=== PATIENT | female | born 1965 | race Caucasian/White ===

== ENCOUNTER 2022-01-19 04:31 | Day surgery (SDC) | payer BC ==
[2022-01-16 17:44] VITALS: BMI 24.4
[2022-01-19] MEDS ORDERED: MIDAZOLAM HCL 2 MG/2 ML SINGLE DOSE VIAL ONE (09:57)
[2022-01-19] MEDS ORDERED: BUPIVACAINE HCL/PF 0.5% (5MG/ML) 10 ML VIAL IJ ONE ×3 (10:33→10:43)
[2022-01-19] MEDS ORDERED: oxyCODONE HCL 5 MG TABLET PO PRN ×2 (12:51→14:26)
[2022-01-19] MEDS ORDERED: LACTATED RINGERS SOLUTION 1,000 ML/1,000 ML INFUS.BAG IV SCH ×2 (13:00→14:45)
[2022-01-19] MEDS ORDERED: ONDANSETRON 4 MG/2 ML VIAL IVPUSH PRN (14:26)
[2022-01-19] MEDS ORDERED: LACTATED RINGERS SOLUTION 1,000 ML IV SCH (14:30)
[2022-01-19 16:39] LABS: HEMATOCRIT 38.7 % (32.4-45.2); HEMOGLOBIN 12.9 GM/dL (10.7-15.3); MCH 29.8 pg (25.7-33.7); MCHC 33.3 g/dl (32.0-36.0); MEAN CELL VOLUME 89.7 fl (80-96); MEAN PLT VOLUME 8.3 fl (7.5-11.1); PLATELET COUNT 267 10^3/uL (134-434); RBC 4.32 M/mm3 (3.60-5.2); RDW 12.8 % (11.6-15.6); WHITE BLOOD COUNT 11.6 K/mm3 (4.0-10.0)
[2022-01-19 17:43] LABS: ANISOCYTOSIS 0; MACROCYTOSIS 0; PLATELET ESTIMATE NORMAL
[2022-01-20 15:27] VITALS: BP 85/44; PULSE 86; TEMP 98.2
== END 2022-01-20 17:21 | disposition home or self-care (01) ==
LOC: JASUSAT 04:31 → JASU-SURG 04:31 → J6S 14:09 → JASUSAT 01-20 17:21
PROVIDERS: ATTEND Surgery
PROC: 0FT44ZZ Resection of Gallbladder, Percutaneous Endoscopic Approach (ICD-10-PCS; principal; 2022-01-19 10:00)
DX: K80.10 Calculus of gallbladder with chronic cholecystitis without obstruction (principal)
CPT/HCPCS: 36415; 85025; 88304-TC; 94760

== ENCOUNTER 2022-07-10 21:47 | Emergency (ER) | payer BC, OTHER ==
[2022-07-10 21:58] VITALS: BP 153/84; PULSE 93; RESP 19; TEMP 98.1; BMI 22.3
[2022-07-10] MEDS ORDERED: IBUPROFEN 600 MG TABLET (FP) PO ONE (22:34)
[2022-07-10] MEDS ORDERED: METHOCARBAMOL 500 MG TABLET PO ONE (22:34)
[2022-07-10] MEDS ORDERED: METHOCARBAMOL 500 MG TABLET ONE (22:34)
== END 2022-07-11 00:52 | disposition home or self-care (01) ==
LOC: JERFT 21:47
DX: S16.1XXA Strain of muscle, fascia and tendon at neck level, initial encounter (principal); S39.012A Strain of muscle, fascia and tendon of lower back, initial encounter; V49.50XA Passenger injured in collision with unspecified motor vehicles in traffic accident, initial encounter
CPT/HCPCS: 72050-TC-FY; 72070-TC-FY; 72100-TC-FY; 73030-TC-LT-FY; 99284-25